=== PATIENT | male | born 1985 | race Hispanic/Latino ===

== ENCOUNTER 2017-10-12 19:30 | Emergency (ER) | payer OTHER ==
[2017-10-12] MEDS ORDERED: IBUPROFEN 600 MG TAB PO (21:15)
[2017-10-12 21:32] LABS: INFLUENZA A AMPLIFICATION NEGATIVE (NEGATIVE); INFLUENZA B AMPLIFICATION NEGATIVE (NEGATIVE)
[2017-10-12] MEDS: diphenhydrAMINE INJ 50MG/ML VIAL (J1200) IV (21:33)
[2017-10-12] MEDS: NS 1,000 ML IV (21:33)
[2017-10-12] MEDS: ONDANSETRON 4MG/2ML VIAL (J2405) IV (21:33)
[2017-10-12] MEDS: KETOROLAC 30 MG/ML VIAL (J1885) IV (21:34)
[2017-10-12 22:03] LABS: BASO % 0.2 % (0.0-1.0); EOS % 0.2 % (0.0-3.0); HEMATOCRIT 41.1 % (42.0-52.0); HEMOGLOBIN 13.5 g/dl (13.5-17.5); IMMATURE GRANULOCYTE % 0.2 % (0-3.0); LYMPH # 0.4 10^3/uL (1.5-4.5); LYMPH % 10.3 % (24.0-44.0); MEAN CORPUSCULAR HEMOGLOBIN 28.1 pg (27.0-33.0); MEAN CORPUSCULAR HGB CONC 32.8 g/dl (32.0-36.5); MEAN CORPUSCULAR VOLUME 85.6 fl (80.0-96.0); MONO # 0.3 10^3/uL (0.0-0.8); MONO % 8.1 % (0.0-5.0); NEUTROPHILS # 3.3 10^3/uL (1.8-7.7); PLATELET COUNT, AUTOMATED 122 10^3/uL (150-450); RED CELL DISTRIBUTION WIDTH 12.3 % (11.5-14.5); WHITE BLOOD COUNT 4.1 10^3/uL (4.0-10.0)
[2017-10-12 22:20] LABS: ANION GAP 6 MEQ/L (8-16); BLOOD UREA NITROGEN 11 MG/DL (7-18); CALCIUM LEVEL 8.1 MG/DL (8.5-10.1); CARBON DIOXIDE LEVEL 27 MEQ/L (21-32); CHLORIDE LEVEL 104 MEQ/L (98-107); CREATININE FOR GFR 0.97 MG/DL (0.70-1.30); GLOMERULAR FILTRATION RATE > 60.0 (>60); GLUCOSE, FASTING 96 MG/DL (70-100); POTASSIUM SERUM 3.9 MEQ/L (3.5-5.1); SODIUM LEVEL 137 MEQ/L (136-145)
[2017-10-12] MEDS: AZITHROMYCIN 250 MG TAB PO (23:06)
== END 2017-10-12 23:43 | disposition home or self-care (01) ==
LOC: M ED 19:30
DX: B96.0 Mycoplasma pneumoniae [M. pneumoniae] as the cause of diseases classified elsewhere (principal); G43.909 Migraine, unspecified, not intractable, without status migrainosus
CPT/HCPCS: J1200

== ENCOUNTER → 2018-05-26 | Outpatient (REF) | payer OTHER ==
[~2018-05-26] MED LIST: AZIT-12 PO; NYQU1LIQ PO; TYLE500T78 PO; ZOFR4TAB14 PO
== END ==
LOC: M SFHCLERA 09:56
PROVIDERS: ATTEND Physician Assistant
DX: J02.9 Acute pharyngitis, unspecified (principal)

== ENCOUNTER → 2019-10-06 | Outpatient (CLI) | payer OTHER, SELFPAY ==
[2019-10-10 00:07] LABS: E003-IGE HORSE EPITHELIA/DAND 4.83 kU/L (Class IV); E004-IGE COW DANDER 0.85 kU/L (Class II); F002-IgE Milk < 0.10 kU/L (Class 0); F004-IgE Wheat 1.88 kU/L (Class III); F013-IgE Peanut 2.52 kU/L (Class III); F014-IgE Soybean 0.44 kU/L (Class I); F026-IgE Pork < 0.10 kU/L (Class 0); F027-IgE Beef < 0.10 kU/L (Class 0); F245-IgE Egg, Whole < 0.10 kU/L (Class 0); FX02-IgE Food Mix (Sea Foods) Negative (.); G002-IgE Bermuda Grass 5.65 kU/L (Class IV); G008-IgE Kentucky Bluegrass 3.28 kU/L (Class III); M001-IgE Penicillium chrysogen 0.59 kU/L (Class II); M002 IgE Cladosporium herbaru < 0.10 kU/L (Class 0); M003 IgE Aspergillus fumigatu < 0.10 kU/L (Class 0); M006-IgE Alternaria alternata < 0.10 kU/L (Class 0); T001-IgE Maple/Box Elder 4.88 kU/L (Class IV); T006-IgE Cedar, Mountain 3.63 kU/L (Class III); T007-IgE Oak, White 6.16 kU/L (Class IV); T008-IgE Elm, American 6.15 kU/L (Class IV); T015-IgE Ash, White 9.12 kU/L (Class IV); T041-IgE Hickory, White 6.43 kU/L (Class IV); T070-IgE White Mulberry 0.38 kU/L (Class I); W009-IgE Plantain, English 4.13 kU/L (Class IV); W014-IgE Pigweed, Rough 3.36 kU/L (Class III); W018-IgE Sheep Sorrel 4.36 kU/L (Class IV)
== END ==
LOC: M WUC 12:50
PROVIDERS: ATTEND Nurse Practitioner Family
DX: J30.1 Allergic rhinitis due to pollen (principal); J30.81 Allergic rhinitis due to animal (cat) (dog) hair and dander; J45.20 Mild intermittent asthma, uncomplicated